=== PATIENT | male | born 1985 | race Caucasian/White ===

== ENCOUNTER → 2023-12-26 06:56 | Outpatient (REF) | payer BC, SELFPAY ==
[2023-12-26 09:42] LABS: % Basophils 0.7 % (0-2); % Eosinophils 2.1 % (0-6); % Lymphocytes 46.5 % (20.5-51.1); % Monocytes 10.6 % (1.7-9.3); % Neutrophils 40.1 % (42.2-75.2); Absolute Eosinophils 0.1 10^3/uL (0-0.7); Absolute Monocytes 0.5 10^3/uL (0.1-0.6); Absolute Neutrophils 1.7 10^3/uL (1.4-6.5); Hemoglobin 15.6 g/dL (13.0-18.0); Mean Corp Hgb Conc. 35.5 g/dL (33.0-37.0); Mean Corpuscular Hgb 30.2 pg (27.0-31.0); Mean Corpuscular Volume 85.1 fL (80.0-94.0); Mean Platelet Volume 9.8 fL (7.4-10.4); Nucleated Red Blood Cells % 0 % (-); Platelet Count 194 10^3/uL (130-400); Red Blood Cell Count 5.17 10^6/uL (4.70-6.10); Red Cell Dist. Width 11.9 % (11.5-14.5); White Blood Cell Count 4.2 10^3/uL (4.8-10.8)
[2023-12-26 10:06] LABS: Glycohemoglobin (HgbA1c) 5.2 % (4.0-5.6)
[2023-12-26 10:24] LABS: ALT (SGPT) 19 U/L (0-50); AST (SGOT) 30 U/L (17-59); Albumin 4.7 g/dl (3.5-5.0); Alkaline Phosphatase 62 U/L (38-126); Blood Urea Nitrogen 17 mg/dl (9-20); Calcium 9.8 mg/dl (8.4-10.2); Carbon Dioxide 28 mmol/L (22-30); Chloride 100 mmol/L (98-107); Glucose 84 mg/dl (70-99); HDL Cholesterol 50 mg/dl; LDL Cholesterol, Calculated 112 mg/dl; Sodium 140 mmol/L (135-145); Total Bilirubin 1.1 mg/dl (0.2-1.3); Total Cholesterol 172 mg/dl (50-199); Total Protein 6.9 g/dl (6.3-8.2); Triglyceride 50 mg/dl (10-149); Very Low Density Lipoprotein 10 mg/dl (0-30); eGFR > 60.00
[2023-12-26 11:01] LABS: TSH 1.17 uIU/ml (0.47-4.68)
== END ==
LOC: HWLAB 06:56
PROVIDERS: ATTENDING PHYSICIAN Physician Assistant Medical
DX: R03.0 Elevated blood-pressure reading, without diagnosis of hypertension (principal); Z82.49 Family history of ischemic heart disease and other diseases of the circulatory system; Z68.29 Body mass index [BMI] 29.0-29.9, adult
CPT/HCPCS: 36415; 80053; 80061; 83036; 84443; 85025